=== PATIENT | female | born 1935 | race African-American/Black ===

== ENCOUNTER 2021-06-26 13:44 | Outpatient (CLI) | payer MEDICARE | END 2021-06-26 13:45 | disposition home or self-care (01) | LOC: BICRAD 13:44 | PROVIDERS: ATTEND Family Medicine | DX: M17.0 Bilateral primary osteoarthritis of knee (principal); I13.10 Hypertensive heart and chronic kidney disease without heart failure, with stage 1 through stage 4 chronic kidney disease, or unspecified chronic kidney disease; N18.4 Chronic kidney disease, stage 4 (severe); D63.1 Anemia in chronic kidney disease; I25.10 Atherosclerotic heart disease of native coronary artery without angina pectoris; K59.00 Constipation, unspecified; E78.5 Hyperlipidemia, unspecified; B35.9 Dermatophytosis, unspecified; R63.4 Abnormal weight loss; Z86.69 Personal history of other diseases of the nervous system and sense organs ==

== ENCOUNTER 2022-07-09 07:36 | Outpatient (CLI) | payer MEDICARE | END 2022-07-09 07:37 | disposition home or self-care (01) | LOC: ULT 07:36 | PROVIDERS: ATTEND Internal Medicine Nephrology | DX: I13.10 Hypertensive heart and chronic kidney disease without heart failure, with stage 1 through stage 4 chronic kidney disease, or unspecified chronic kidney disease (principal); N18.4 Chronic kidney disease, stage 4 (severe); D63.1 Anemia in chronic kidney disease; M19.90 Unspecified osteoarthritis, unspecified site; E78.5 Hyperlipidemia, unspecified; K59.00 Constipation, unspecified; M85.80 Other specified disorders of bone density and structure, unspecified site; B35.9 Dermatophytosis, unspecified; R63.4 Abnormal weight loss; I08.3 Combined rheumatic disorders of mitral, aortic and tricuspid valves; R93.421 Abnormal radiologic findings on diagnostic imaging of right kidney; R93.422 Abnormal radiologic findings on diagnostic imaging of left kidney; Z86.69 Personal history of other diseases of the nervous system and sense organs | CPT/HCPCS: 76770; 93306; 93975 ==

== ENCOUNTER 2023-06-23 10:36 | Outpatient (CLI) | payer MEDICARE | END 2023-06-23 10:37 | disposition home or self-care (01) | LOC: ULT 10:36 | PROVIDERS: ATTEND Family Medicine | DX: R09.89 Other specified symptoms and signs involving the circulatory and respiratory systems (principal); I65.21 Occlusion and stenosis of right carotid artery | CPT/HCPCS: 93880 ==